=== PATIENT | female | born 1950 | race Hispanic/Latino ===

== ENCOUNTER 2018-07-27 08:22 | Emergency (ER) | payer MEDICARE, OTHER ==
[~2018-07-27] VITALS: Ht 157.5 cm; Wt 62.1 kg
[~2018-07-27 08:22] MED LIST: NAPROXEN250 MG PO; PREDNISONE10 MG; VALIUM2 MG PEG
[2018-07-27] MEDS ORDERED: SODIUM CHLORIDE 0.9% 1000ML 1,000 ML IV STA (09:00)
[2018-07-27] MEDS ORDERED: PANTOPRAZOLE 40 MG 10ML VIAL IV NR (09:00)
[2018-07-27] MEDS ORDERED: DIATRIZOATE MEGL/DIATRIZOA SOD 30 ML BTL PO ONE (09:18)
[2018-07-27 09:30] LABS: BASOPHILS # (AUTO) 0.1 (0.0-0.1); BASOPHILS % 0.7 % (0.0-1.0); EOSINOPHILS # (AUTO) 0.2 (0.0-0.4); EOSINOPHILS % 1.9 % (0.0-6.0); HEMATOCRIT 37.8 % (34.2-44.1); HEMOGLOBIN 12.1 g/dL (12.0-16.0); LYMPHOCYTES # (AUTO) 3.3 (1.0-3.2); LYMPHOCYTES % 38.5 % (18.0-39.1); MEAN CORPUSCULAR HEMOGLOBIN 29.7 pg (28-32); MEAN CORPUSCULAR VOLUME 92.9 fL (81-99); MONOCYTES # (AUTO) 0.9 (0.2-0.8); MONOCYTES % 10.5 % (4.4-11.3); NEUTROPHILS # (AUTO) 4.2 (2.1-6.9); NEUTROPHILS % 48.3 % (38.7-80.0); PLATELET COUNT 390 x10e3/uL (140-360); RED BLOOD COUNT 4.07 x10e6/uL (3.6-5.1); RED CELL DISTRIBUTION WIDTH 12.8 % (11.7-14.4)
[2018-07-27 09:32] LABS: CLARITY,URINE CLEAR (CLEAR); COLOR,URINE YELLOW (YELLOW)
[2018-07-27 09:33] LABS: BILIRUBIN,URINE NEGATIVE (NEGATIVE); KETONES,URINE NEGATIVE (NEGATIVE); LEUKOCYTE ESTERASE ,URINE NEGATIVE (NEGATIVE); NITRITE,URINE NEGATIVE (NEGATIVE); PROTEIN,URINE DIPSTICK NEGATIVE (NEGATIVE); URINE UROBILINOGEN 0.2 mg/dL (0.2 - 1)
[2018-07-27 09:58] LABS: INR 0.88; PROTHROMBIN TIME 12.8 seconds (11.9-14.5)
[2018-07-27 09:59] LABS: PARTIAL THROMBOPLASTIN TIME 28.8 seconds (23.8-35.5)
[2018-07-27 10:01] LABS: EPITHELIAL CELLS,URINE RARE /LPF
[2018-07-27 10:03] LABS: ALANINE AMINOTRANSFERASE 23 IU/L (0-55); ALBUMIN 3.5 g/dL (3.5-5.0); ALBUMIN/GLOBULIN RATIO 1.2 (0.8-2.0); ALKALINE PHOSPHATASE 104 IU/L (40-150); ANION GAP 9.7 mmol/L (8-16); BLOOD UREA NITROGEN 15 mg/dL (7-26); BUN/CREATININE RATIO 20 (6-25); CALCIUM 8.8 mg/dL (8.4-10.2); CARBON DIOXIDE 25 mmol/L (22-29); CHLORIDE 106 mmol/L (98-107); CREATINE KINASE 72 IU/L (29-168); CREATININE, SERUM 0.74 mg/dL (0.57-1.11); EST GLOMERULAR FILTRATION RATE > 60 ML/MIN (60-); GLUCOSE 99 mg/dL (74-118); LIPASE 26 U/L (8-78); MAGNESIUM 2.3 MG/DL (1.3-2.1); POTASSIUM 3.7 mmol/L (3.5-5.1); SODIUM 137 mmol/L (136-145)
--- NOTE | 2018-07-27 10:55 | Diagnostic Imaging Report ---
EXAMINATION: CHEST SINGLE (PORTABLE) COMPARISON: None INDICATION: Abdominal pain, left lower quadrant DISCUSSION: Frontal view of the chest obtained at 1038 hours. HEART AND MEDIASTINUM: The cardiomediastinal silhouette is unremarkable. LINES: None. LUNGS: The lungs are well inflated and clear. No pneumonia or pulmonary edema. PLEURA: No pleural effusion or pneumothorax. BONES AND SOFT TISSUES: No focal osseous lesion. The soft tissues are normal. IMPRESSION: No acute cardiopulmonary disease. Signed by: Dr. Eron Shaver MD on 07/27/2018 10:52 AM
--- NOTE | 2018-07-27 11:20 | NUR ---
REPORT GIVEN TO SALBADOR CLARK WHO WILL TAKE OVER PT CARE.
[2018-07-27] MEDS ORDERED: SODIUM CHLORIDE 0.9% 50ML 50 ML ONE (11:39)
[2018-07-27] MEDS ORDERED: IOPAMIDOL 370 MG/ML 200 ML INFUS..BTL INJ ONE (11:39)
--- NOTE | 2018-07-27 11:51 | Diagnostic Imaging Report ---
CT Abdomen And Pelvis with Intravenous Contrast INDICATION: Constipation, abdominal pain, history of appendectomy TECHNIQUE: Thin collimation axial images obtained from the diaphragm to the level of the pubic symphysis following the uneventful administration of oral and 100 cc of low osmolar, nonionic intravenous contrast. Dose reduction techniques used: Automated exposure control, adjustment of the mAs and/or kVp according to patient size, standardized low-dose protocol, and/or iterative reconstruction technique. RADIATION DOSE: Total DLP: 301.86 mGy*cm Estimated effective dose: (DLP x 0.015 x size factor) mSv CTDIvol has been reviewed. It is below the limits set by the Radiation Protocol Committee (RPC). COMPARISON: None. ABDOMEN FINDINGS: Lung Bases: Clear. The visualized portions of the mediastinum are normal.. Liver: Decreased attenuation consistent with steatosis. No evidence for mass. Gallbladder: Present and appears normal. No biliary ductal dilatation. Pancreas: Normal attenuation without mass or ductal dilatation. Spleen: Normal in size. No evidence of mass.. Adrenal Glands: No evidence for mass. Kidneys: Right: Normal enhancement. No soft tissue mass. No hydronephrosis. Left: Normal enhancement. No soft tissue mass. No hydronephrosis. Lymph Nodes: No enlarged abdominal or retroperitoneal lymph nodes.. Aorta: Normal in diameter. Iliac arteries are mildly ectatic. PELVIS FINDINGS: Bowel: Stomach: Normal. Small Bowel: Normal in caliber with normal wall thickness. Large Bowel: Moderate burden of stool throughout. No significant burden of diverticulosis. No large bowel inflammation. Rectum: Focal circumferential luminal narrowing of the mid rectum without discrete mass (axial image 66). Appendix: Absent. Bladder: Normal. The uterus is present and normal in morphology. No adnexal masses. No free fluid or fluid collection. Bones: Moderate degenerative changes of the lower lumbar spine. No compression deformities. There are bone islands in the pelvis. Soft tissues: Unremarkable. IMPRESSION: 1. Moderate burden of stool throughout the colon. Focal luminal narrowing of the mid rectum may be from peristalsis or possible stricture. If conservative measures are unsuccessful, further characterization with colonoscopy is recommended. 2. Steatosis. Signed by: Dr. Eron Shaver MD on 07/27/2018 11:48 AM
== END 2018-07-27 13:27 | disposition home or self-care (01) ==
LOC: ER 08:22
DX: R10.84 Generalized abdominal pain (principal); K59.00 Constipation, unspecified; E78.5 Hyperlipidemia, unspecified
CPT/HCPCS: 36415; 71045; 74177; 80053; 81001; 82550; 82553; 83690; 83735; 84484; 85025; 85610; 85730; 87086; 99284; J7030; Q9967

== ENCOUNTER 2021-08-28 19:05 | Emergency (ER) | payer MEDICARE, OTHER ==
[~2021-08-28] VITALS: Ht 157.5 cm; Wt 60.3 kg
[2021-08-28] MEDS ORDERED: TETANUS/DIPHTHERIA TOX ADULT 0.5 ML SYR IM ONE (19:30)
[2021-08-28] MEDS ORDERED: LIDOCAINE HCL 1% LOCAL INJ 20 ML VIAL INJ ONE (19:30)
[2021-08-28] MEDS ORDERED: LIDOCAINE HCL 2% LOCAL 20 ML VIAL ONE (19:32)
[2021-08-28] MEDS ORDERED: CEPHALEXIN500 MG PO (19:39)
== END 2021-08-28 19:52 | disposition home or self-care (01) ==
LOC: ER 19:12
DX: S66.321A Laceration of extensor muscle, fascia and tendon of left index finger at wrist and hand level, initial encounter (principal); W45.8XXA Other foreign body or object entering through skin, initial encounter; Y92.008 Other place in unspecified non-institutional (private) residence as the place of occurrence of the external cause; E78.5 Hyperlipidemia, unspecified
CPT/HCPCS: 12001; 90471; 90714; 99282; J2001

== ENCOUNTER 2021-08-30 12:56 | Emergency (ER) | payer MEDICARE, OTHER ==
[~2021-08-30] VITALS: Ht 157.5 cm; Wt 60.3 kg
[~2021-08-30 12:56] MED LIST changes: +CEPHALEXIN500 MG PO
[2021-08-30] MEDS ORDERED: HYDROCODONE/APAP 5MG-325MG TAB PO ONE (13:15)
[2021-08-30] MEDS ORDERED: ULTRAM 50MG50 MG PO (14:42)
[2021-08-30] MEDS ORDERED: ULTRAM50 MG PO (14:46)
== END 2021-08-30 15:43 | disposition home or self-care (01) ==
LOC: ER 12:59
DX: R07.89 Other chest pain (principal); S20.213A Contusion of bilateral front wall of thorax, initial encounter; S63.501A Unspecified sprain of right wrist, initial encounter; S70.311A Abrasion, right thigh, initial encounter; W18.2XXA Fall in (into) shower or empty bathtub, initial encounter; Y93.E1 Activity, personal bathing and showering; Y92.002 Bathroom of unspecified non-institutional (private) residence as the place of occurrence of the external cause
CPT/HCPCS: 71111; 99283